=== PATIENT | female | born 1955 | race Caucasian/White ===

== ENCOUNTER 2017-06-21 21:58 | Emergency (ER) | payer OTHER ==
--- NOTE | 2017-06-21 22:09 | EDM.PDOC ---
ED HPI GENERAL MEDICAL PROBLEM - General Chief Complaint: Lower Extremity Injury/Pain Stated Complaint: HURT ANKLE Time Seen by Provider: 06/21/17 23:08 - History of Present Illness INITIAL COMMENTS - FREE TEXT/NARRATIVE: HISTORY AND PHYSICAL: History of present illness: Patient 62-year-old female presents with a concern of acute left foot and ankle injury that occurred when she missed a step earlier today patient denies head or neck pain or trauma denies chest pain palpitations dizziness or any other concern Review of systems: As per history of present illness and below otherwise all systems reviewed and negative. Past medical history: As per history of present illness and as reviewed below otherwise noncontributory. Surgical history: As per history of present illness and as reviewed below otherwise noncontributory. Social history: No reported history of drug or alcohol abuse. Family history: As per history of present illness and as reviewed below otherwise noncontributory. Physical exam: HEENT: Atraumatic, normocephalic, pupils reactive, negative for conjunctival pallor or scleral icterus, mucous membranes moist, throat clear, neck supple, nontender, trachea midline. Lungs: Clear to auscultation, breath sounds equal bilaterally, chest nontender. Heart: S1S2, regular, negative for clicks, rubs, or JVD. Abdomen: Soft, nondistended, nontender. Negative for masses or hepatosplenomegaly. Negative for costovertebral tenderness. Pelvis: Stable nontender. Genitourinary: Deferred. Rectal: Deferred. Extremities: Patient has some tenderness and swelling over the dorsolateral aspect of her foot as well as her medial malleoli region there is no crepitation or point tenderness Achilles tendon is intact there is no proximal fibular tenderness she must neurovascular normal Neuro: Awake, alert, oriented. Cranial nerves II through XII unremarkable. Cerebellum unremarkable. Motor and sensory unremarkable throughout. Exam nonfocal. Diagnostics: X-ray left foot/ankle Therapeutics: To be determined Impression: #1 acute left foot/ankle injury Definitive disposition and diagnosis as appropriate pending reevaluation and review of above. - Related Data Allergies Allergy/AdvReac Type Severity Reaction Status Date / Time shellfish derived Allergy Anaphylactic Verified 06/21/17 22:16 Shock Some Antibiotic??? Allergy Cannot Uncoded 06/21/17 22:16 Remember Home Meds: Home Meds Aspirin 81 mg PO BEDTIME 05/26/16 [History] Hydrochlorothiazide 25 mg PO DAILY 05/26/16 [History] Latanoprost 1 drop OP DAILY 05/26/16 [History] Verapamil [Calan SR] 240 mg PO DAILY 05/26/16 [History] atorvaSTATin [Lipitor] 40 mg PO ONETIME 05/26/16 [History] metFORMIN [Glucophage XR] 1,000 mg PO WITHDINNER 05/26/16 [History] Past Medical History HEENT History: Reports: Other (See Below) Other HEENT History: Increased Ocular Pressure but not glaucoma Cardiovascular History: Reports: Heart Murmur, High Cholesterol, Hypertension Gastrointestinal History: Reports: Hemorrhoids Genitourinary History: Reports: Renal Calculus [employer] History: Reports: Endocrine/Metabolic History: Reports: Diabetes, Type II - Past Surgical History Female Surgical History: Reports: Hysterectomy, Other (See Below) Social & Family History - Family History Family Medical History: Noncontributory - Tobacco Use Smoking Status *Q: Current Every Day Smoker Years of Tobacco use: 15 Packs/Tins Daily: 1 - Recreational Drug Use Recreational Drug Use: No Review of Systems - Review of Systems Review Of Systems: ROS reveals no pertinent complaints other than HPI. ED EXAM, GENERAL - Physical Exam Exam: See Below (See dictation) Course - Vital Signs Last Recorded V/S: Last Vital Signs Temp 36.6 C 06/21/17 21:58 Pulse 77 06/21/17 21:58 Resp 18 06/21/17 21:58 BP 175/75 H 06/21/17 21:58 Pulse Ox 96 06/21/17 21:58 - Orders/Labs/Meds Orders: Active Orders 24 hr Category Date Time Status Ankle Min 3V Lt [CR] Stat Exams 06/21/17 22:08 Taken Foot 2V Lt [CR] Stat Exams 06/21/17 22:08 Taken Departure - Departure Time of Disposition: 23:08 Disposition: Home, Self-Care 01 Condition: Good Clinical Impression: Ankle injury, Foot injury - Discharge Information Referrals: Mike Florez MD [Primary Care Provider] - Forms: ED Department Discharge Additional Instructions: The following information is given to patients seen in the emergency department who are being discharged to home. This information is to outline your options for follow-up care. We provide all patients seen in our emergency department with a follow-up referral. The need for follow-up, as well as the timing and circumstances, are variable depending upon the specifics of your emergency department visit. If you don't have a primary care physician on staff, we will provide you with a referral. We always advise you to contact your personal physician following an emergency department visit to inform them of the circumstance of the visit and for follow-up with them and/or the need for any referrals to a consulting specialist. The emergency department will also refer you to a specialist when appropriate. This referral assures that you have the opportunity for followup care with a specialist. All of these measure are taken in an effort to provide you with optimal care, which includes your followup. Under all circumstances we always encourage you to contact your private physician who remains a resource for coordinating your care. When calling for followup care, please make the office aware that this follow-up is from your recent emergency room visit. If for any reason you are refused follow-up, please contact the [facility] emergency department at and asked to speak to the emergency department charge nurse. Charly wrap crutches as directed Motrin/Tylenol as directed follow-up primary medical doctor 1-2 days return as needed as discussed - My Orders Last 24 Hours: My Active Orders 06/21/17 22:08 Ankle Min 3V Lt [CR] Stat Foot 2V Lt [CR] Stat - Assessment/Plan Last 24 Hours: My Active Orders 06/21/17 22:08 Ankle Min 3V Lt [CR] Stat Foot 2V Lt [CR] Stat
[2017-06-22 01:02] VITALS: BP 170/70
--- NOTE | 2017-06-22 13:31 | CR ---
EXAM DATE: 06/21/17 PATIENT'S AGE: 62 Patient: JACK ORELLANA Facility: [place], [place] Site . Site : 1955 Study: XRay Extremity Left ankle [id number]/5/2017 10:25:06 PM Ordering Physician: Doctor Mratinez Final Report: INDICATION: Pain, fall. TECHNIQUE: Ankle radiograph 3 views COMPARISON: None FINDINGS: Bones: Alignment is normal. No acute fractures or aggressive osseous lesions seen. Plantar calcaneal spur. Joint spaces: The visualized tibiotalar, subtalar, and midfoot joints are unremarkable in appearance. No joint effusion is seen. Soft tissues: Kager`s fat pad is normal in appearance. The Achilles` tendon is normal in appearance. No radiopaque foreign bodies are noted. IMPRESSION: 1. No acute osseous injuries are identified. Dictated by Geraldo Lugo MD @ 06/21/2017 10:39:42 PM Dictated by: Geraldo Lugo MD @ 06/21/2017 22:39:49 (Electronic Signature) Report Signed by Proxy. [facility]ITAL[facility]ur[facility]
--- NOTE | 2017-06-22 13:32 | CR ---
EXAM DATE: 06/21/17 PATIENT'S AGE: 62 Patient: JACK ORELLANA Facility: [place], [place] Site . Site : 1955 Study: XRay Extremity Left foot [id number]/5/2017 10:25:33 PM Ordering Physician: Doctor Martinez Final Report: INDICATION: Pain, fall. TECHNIQUE: Left foot, two views COMPARISON: None FINDINGS: Bones: Alignment is normal. No acute fractures or aggressive osseous lesions seen. Plantar calcaneal spurring. Joint spaces: The visualized hindfoot, midfoot, and forefoot joints are unremarkable in appearance. No oblique image obtained. Soft tissues: Unremarkable. No radiopaque foreign bodies are noted. IMPRESSION: 1. No acute osseous injuries are identified. Dictated by Geraldo Lugo MD @ 06/21/2017 10:41:14 PM Dictated by: Geraldo Lugo MD @ 06/21/2017 22:41:19 (Electronic Signature) Report Signed by Proxy. KAREN
== END 2017-06-21 23:20 | disposition home or self-care (01) ==
LOC: MW.ED 21:58
DX: S99.912A Unspecified injury of left ankle, initial encounter (principal); S99.922A Unspecified injury of left foot, initial encounter; F17.210 Nicotine dependence, cigarettes, uncomplicated; W10.9XXA Fall (on) (from) unspecified stairs and steps, initial encounter; Z79.82 Long term (current) use of aspirin; Z79.899 Other long term (current) drug therapy; Z79.84 Long term (current) use of oral hypoglycemic drugs; I10 Essential (primary) hypertension; E11.9 Type 2 diabetes mellitus without complications
CPT/HCPCS: 73610-26-LT; 73610-LT; 73620-26-LT; 73620-LT; 99283

== ENCOUNTER 2023-01-24 10:27 | Emergency (ER) | payer MEDICARE, OTHER ==
[2023-01-24] MEDS ORDERED: Sodium Chloride 0.9% 1,000 ML IV ONE (10:33)
[2023-01-24] MEDS ORDERED: Ondansetron 4 MG/2 ML SDV IVPUSH ONE (10:48)
[2023-01-24] MEDS ORDERED: Ketorolac 30 MG/ML SDV IVPUSH ONE (10:49)
[2023-01-24 11:31] LABS: BASOPHILS PERCENT AUTO 0.1 % (0.0-1.5); EOSINOPHILS PERCENT AUTO 0.1 % (0.0-7.0); HEMATOCRIT 37.7 % (36.0-46.0); HEMOGLOBIN 12.5 g/dL (12.0-16.0); LYMPHOCYTES ABSOLUTE AUTO 1.2 K/uL (0.6-2.4); LYMPHOCYTES PERCENT AUTO 7.9 % (16.0-40.0); MEAN CORPUSCULAR HEMOGLOBIN 30.6 pg (27.0-32.0); MEAN CORPUSCULAR HGB CONC 33.2 g/dL (31.0-37.0); MEAN CORPUSCULAR VOLUME 92.4 fL (80.0-98.0); NEUTROPHILS ABSOLUTE AUTO 12.4 K/uL (1.4-5.7); NEUTROPHILS PERCENT AUTO 84.9 % (48.0-80.0); NRBC ABSOLUTE 0 K/uL; PLATELET COUNT,PLT 247 K/uL (150-400); RED BLOOD CELL COUNT 4.08 M/uL (4.30-5.90); WHITE BLOOD CELL COUNT,WBC 14.64 K/uL (4.0-11.0)
[2023-01-24 11:44] LABS: A/G RATIO 0.7 (0.9-1.6); ALBUMIN 2.9 g/dL (3.4-5.0); BILIRUBIN TOTAL 0.7 mg/dL (0.2-1.0); CALCIUM 9.1 mg/dL (8.5-10.1); CARBON DIOXIDE,CO2 24.7 mmol/L (21.0-32.0); EST CRCL DRUG DOSING (CG) 46.5 mL/min; POTASSIUM,K 2.6 mmol/L (3.5-5.1); PROTEIN TOTAL,TP 7.3 g/dL (6.4-8.2)
[2023-01-24] MEDS ORDERED: Potassium Chloride 20 MEQ Tab.ER PO ONE ×2 (12:16→12:21)
[2023-01-24] MEDS ORDERED: Potassium Chloride 20 MEQ in Premix Bag 1 BAG IV ONE (12:16)
[2023-01-24] MEDS ORDERED: Sodium Chloride 0.9% 250 ML IV ONE (12:30)
[2023-01-24 12:31] LABS: APPEARANCE,URINE CLEAR; BILIRUBIN,URINE NEGATIVE (NEGATIVE); COLOR,URINE YELLOW; GLUCOSE,URINE >=1000 mg/dL (NEGATIVE); KETONES,URINE NEGATIVE (NEGATIVE); LEUKOCYTE ESTERASE,URINE NEGATIVE (NEGATIVE); NITRITE,URINE NEGATIVE (NEGATIVE); OCCULT BLOOD,URINE TRACE-INTACT (NEGATIVE); PH,URINE 5.5 (5.0-8.0); PROTEIN,URINE 30 mg/dL (NEGATIVE)
[2023-01-24 13:01] LABS: BACTERIA,URINE 2+ (NEGATIVE); EPITHELIAL CELLS,URINE FEW (NONE-FEW); RBC,URINE 0-2 (0-2/HPF)
[2023-01-24 13:17] VITALS: BP 102/42; PULSE 54
== END 2023-01-24 13:16 | disposition home or self-care (01) ==
LOC: MW.ED 10:27
DX: N39.0 Urinary tract infection, site not specified (principal); N20.0 Calculus of kidney; E87.6 Hypokalemia; E78.00 Pure hypercholesterolemia, unspecified; I10 Essential (primary) hypertension; E11.9 Type 2 diabetes mellitus without complications; Z91.013 Allergy to seafood; Z79.82 Long term (current) use of aspirin; Z79.84 Long term (current) use of oral hypoglycemic drugs; Z79.899 Other long term (current) drug therapy
CPT/HCPCS: 36415; 74176; 80053; 81001; 83735; 85025; 93005; 96361; 96374; 96375; 99284; A9270; J1885; J2405; J7030

== ENCOUNTER 2023-05-24 09:23 | Emergency (ER) | payer MEDICARE, OTHER ==
[2023-05-24] MEDS ORDERED: Ondansetron 4 MG/2 ML SDV IVPUSH ONE (09:30)
[2023-05-24] MEDS ORDERED: Naloxone 0.4 MG/ML SDV IVPUSH PRN (09:30)
[2023-05-24] MEDS ORDERED: Sodium Chloride 0.9% 2.5 ML Syringe FLUSH PRN (09:30)
[2023-05-24] MEDS ORDERED: Sodium Chloride 0.9% 10 ML Syringe FLUSH PRN (09:30)
[2023-05-24] MEDS: Morphine 4 MG/ML Syringe IVPUSH ONE ×2 (09:42→09:47)
[2023-05-24] MEDS ORDERED: Ketorolac 30 MG/ML SDV IVPUSH ONE (09:46)
[2023-05-24 09:48] LABS: APPEARANCE,URINE SLT CLOUDY; BILIRUBIN,URINE NEGATIVE (NEGATIVE); COLOR,URINE YELLOW; GLUCOSE,URINE 250 mg/dL (NEGATIVE); KETONES,URINE TRACE mg/dL (NEGATIVE); LEUKOCYTE ESTERASE,URINE NEGATIVE (NEGATIVE); NITRITE,URINE NEGATIVE (NEGATIVE); OCCULT BLOOD,URINE LARGE (NEGATIVE); PROTEIN,URINE 100 mg/dL (NEGATIVE); UROBILINOGEN,URINE 0.2 EU/dL (<2.0)
[2023-05-24 09:53] LABS: EPITHELIAL CELLS,URINE FEW (NONE-FEW); RBC,URINE TOO NUMEROUS TO CT (0-2/HPF); WBC,URINE 0-2 (0-5/HPF)
[2023-05-24 09:54] LABS: BACTERIA,URINE OCCASIONAL (NEGATIVE)
[2023-05-24 09:58] LABS: BASOPHILS ABSOLUTE AUTO 0.03 K/uL (0.00-0.20); BASOPHILS PERCENT AUTO 0.2 % (0.0-1.0); EOSINOPHILS ABSOLUTE AUTO 0.06 K/uL (0.00-0.45); EOSINOPHILS PERCENT AUTO 0.4 % (0.0-6.0); HEMATOCRIT 42.5 % (37.0-47.0); HEMOGLOBIN 13.7 g/dL (12.0-16.0); IMMATURE GRAN ABSOLUTE AUTO 0.05 K/uL (0.00-0.05); IMMATURE GRAN PERCENT AUTO 0.4 % (0.0-0.4); LYMPHOCYTES ABSOLUTE AUTO 1.37 K/uL (1.00-4.80); LYMPHOCYTES PERCENT AUTO 9.7 % (24.0-44.0); MEAN CORPUSCULAR HEMOGLOBIN 30.1 pg (28.0-32.0); MEAN CORPUSCULAR HGB CONC 32.2 g/dL (32.0-36.0); MEAN CORPUSCULAR VOLUME 93.4 fL (83.0-99.0); MEAN PLATELET VOLUME 9.3 fL (9.4-12.3); MONOCYTES ABSOLUTE AUTO 0.62 K/uL (0.00-0.80); MONOCYTES PERCENT AUTO 4.4 % (0.0-8.0); NEUTROPHILS PERCENT AUTO 84.9 % (41.0-71.0); PLATELET COUNT,PLT 312 K/uL (150-400); RED BLOOD CELL COUNT 4.55 M/uL (4.10-5.30); WHITE BLOOD CELL COUNT,WBC 14.11 K/uL (3.9-11.3)
[2023-05-24 10:19] LABS: A/G RATIO 1.1 (0.9-1.6); ALBUMIN 4.3 g/dL (3.4-5.0); BILIRUBIN TOTAL 0.4 mg/dL (0.2-1.0); CALCIUM 9.3 mg/dL (8.5-10.1); CARBON DIOXIDE,CO2 27.4 mmol/L (21.0-32.0); EST CRCL DRUG DOSING (CG) 46.5 mL/min; PROTEIN TOTAL,TP 8.3 g/dL (6.4-8.2)
[2023-05-24] MEDS ORDERED: cefTRIAXone 2 GM in Sodium Chloride 0.9% 50 ML IV ONE (11:03)
[2023-05-24 11:28] VITALS: BP 167/51; PULSE 55
== END 2023-05-24 11:43 | disposition home or self-care (01) ==
LOC: MW.ED 09:23
DX: N13.2 Hydronephrosis with renal and ureteral calculous obstruction (principal); R82.71 Bacteriuria; I10 Essential (primary) hypertension; E11.9 Type 2 diabetes mellitus without complications; Z79.899 Other long term (current) drug therapy; Z79.84 Long term (current) use of oral hypoglycemic drugs; Z91.013 Allergy to seafood
CPT/HCPCS: 36415; 74176; 80053; 81001; 83690; 85025; 96365; 96375; 99284; J0696; J1885; J2405; J3490; J2270